=== PATIENT | female | born 1980 | race Caucasian/White ===

== ENCOUNTER 2017-03-10 10:06 | Day surgery (SDC) | payer BC ==
[~2017-03-10] VITALS: Ht 170.2 cm; Wt 83.9 kg
[~2017-03-10 10:06] MED LIST: ENDOCET 5-3251 EACH PO; FISH OIL500 MG PO; IBUPROFEN800 MG PO; MOTRIN800 MG PO; PRENATAL TABLE1 EAC3 PO
[2017-03-10 10:44] VITALS: BP 120/74
[2017-03-10] MEDS ORDERED: MOTRIN800 MG PO (15:14)
[2017-03-10] MEDS ORDERED: PERCOCET 5/31 TABLET PO (15:14)
[2017-03-10 17:40] VITALS: BP 112/58
== END 2017-03-10 18:46 | disposition home or self-care (01) ==
LOC: SDC 10:06
DX: N92.0 Excessive and frequent menstruation with regular cycle (principal); D25.1 Intramural leiomyoma of uterus; D27.0 Benign neoplasm of right ovary; N83.8 Other noninflammatory disorders of ovary, fallopian tube and broad ligament; N72 Inflammatory disease of cervix uteri; Z82.49 Family history of ischemic heart disease and other diseases of the circulatory system; Z83.49 Family history of other endocrine, nutritional and metabolic diseases; Z81.8 Family history of other mental and behavioral disorders; Z80.8 Family history of malignant neoplasm of other organs or systems; Z82.3 Family history of stroke
CPT/HCPCS: 88307; J0131; J0690; J1100; J1170; J1885; J2250; J2405; J2710; J3010; Q0175